=== PATIENT | female | born 1960 ===

== ENCOUNTER 2016-10-15 12:52 | Emergency (ER) | payer MEDICARE, MEDICAID ==
[2016-10-15 12:56] VITALS: BMI 29.2
[2016-10-15 12:59] VITALS: BP 111/83; PULSE 85; RESP 18; TEMP 98.5; O2SAT 96
--- NOTE | 2016-10-15 13:03 | ED PDOC ---
Arrival/HPI - General Historian: Patient - General Chief Complaint: Bite Time Seen by Provider: 10/15/16 12:57 - History of Present Illness Narrative History of Present Illness (Text): 10/15/16 12:59 56 y/o female, pmh including pneumonia, nkda, c/o tick bite on the lt. upper arm x 2 days. PT. stated that [place] the [place], bitten by the tick which was painful, removed it by herself, no numbness or tingling, no fever or chills , no headache or night sweat, no dizziness, no other medical or psychological complaints. (Daniel Aldridge) Past Medical History - Provider Review Nursing Documentation Reviewed: Yes - Infectious Disease Hx of Infectious Diseases: None - Tetanus Immunization Tetanus Immunization: Unknown - Cardiac Hx Pacemaker: No - Pulmonary Hx Respiratory Disorders: Yes Hx Asthma: Yes Hx Pneumonia: Yes - Neurological Hx Paralysis: No - HEENT Hx HEENT Disorder: No - Renal Hx Renal Disorder: No - Endocrine/Metabolic Hx Endocrine Disorders: No - Hematological/Oncological Hx Blood Transfusions: No Hx Blood Transfusion Reaction: No - Integumentary Hx Dermatological Disorder: No - Musculoskeletal/Rheumatological Hx Musculoskeletal Disorders: Yes - Gastrointestinal Hx Gastrointestinal Disorders: No - Genitourinary/Gynecological Hx Genitourinary Disorders: No - Psychiatric Hx Psychophysiologic Disorder: No Hx Substance Use: No - Surgical History Hx Orthopedic Surgery: Yes (RIGHT ANKLE) Other/Comment: OVARIAN CYST; fibroids removed - Anesthesia Hx Anesthesia: Yes Hx Anesthesia Reactions: No Hx Malignant Hyperthermia: No - Suicidal Assessment Feels Threatened In Home Enviroment: No Family/Social History - Physician Review Nursing Documentation Reviewed: Yes Family/Social History: Unknown Family HX Smoking Status: Light Smoker < 10 Cigarettes Daily Hx Alcohol Use: No Hx Substance Use: No Hx Substance Use Treatment: No Allergies/Home Meds Allergies/Adverse Reactions: Allergies No Known Allergies Allergy (Verified 07/06/15 19:52) Home Medications: Home Meds Medication Instructions Recorded Confirmed Ciprofloxacin HCl [Cetraxal] 2 drop OT BID 08/23/16 08/23/16 Review of Systems - Review of Systems Constitutional: absent: Fatigue, Fevers Eyes: absent: Vision Changes ENT: absent: Hearing Changes Respiratory: absent: Cough Cardiovascular: absent: Chest Pain Gastrointestinal: absent: Abdominal Pain, Nausea, Vomiting Skin: Rash. absent: Pruritis, Skin Lesions, Laceration, Abscess, Ulcer, Cellulitis Neurological: absent: Headache, Dizziness, Focal Weakness, Gait Changes Physical Exam Vital Signs Reviewed: Yes Temperature: Afebrile Blood Pressure: Normal Pulse: Regular Respiratory Rate: Normal Appearance: Positive for: Well-Appearing, Non-Toxic, Comfortable Pain Distress: Mild Mental Status: Positive for: Alert and Oriented X 3 - Systems Exam Head: Present: Atraumatic, Normocephalic Pupils: Present: PERRL Extroacular Muscles: Present: EOMI Conjunctiva: Present: Normal Mouth: Present: Moist Mucous Membranes Neck: Present: Normal Range of Motion Respiratory/Chest: Present: Clear to Auscultation, Good Air Exchange. No: Respiratory Distress, Accessory Muscle Use Cardiovascular: Present: Regular Rate and Rhythm, Normal S1, S2. No: Murmurs Abdomen: Present: Normal Bowel Sounds. No: Tenderness, Distention, Peritoneal Signs Back: Present: Normal Inspection Upper Extremity: Present: Normal Inspection. No: Cyanosis, Edema Lower Extremity: Present: Normal Inspection. No: Edema Neurological: Present: GCS=15, Speech Normal, Motor Func Grossly Intact, Gait Normal, Memory Normal Skin: Present: Warm, Dry, Rashes (Lt. arm: visible insect bite wound with redness approx. 1cm diameter, no bullseye or target signs, FROM without limitation, sensation intact, motor 5/5, +radial pulse, capillary refill< 2 seconds, neurovascular intact, no visible remaining body parts on the wound. ), Normal Color Psychiatric: Present: Alert, Oriented x 3, Normal Insight, Normal Concentration Medical Decision Making ED Course and Treatment: 10/15/16 13:05 -lymes Igg and Igm ordered. -I discussed with the patient about prophylatic treatment for doxycycline and she will need follow up with his own pmd for repeat test as needed, pt. agreed. -Discharge home with zyrtec, doxycycline, stay hydrated, bed rest, take tylenol for pain as needed, follow up with your own pmd within 2 days, return to the ER for any new or worsening signs or symptoms. Please note that if you have lymes disease which you will need additional 20 days of antibiotic. (Daniel Aldridge) I was available for consultation during PA evaluation. The chart was reviewed by me, and I agree with disposition. The documented history was done by the physician data analytics architect. The documented physical exam was done by the physician data analytics architect. The documented procedures were done by the physician data analytics architect. (Juan Jean) - PA / HEALTH INFORMATION TECHNOLOGIST / Resident Statement MD/DO has reviewed & agrees with the documentation as recorded. Disposition/Present on Arrival - Present on Arrival Any Indicators Present on Arrival: No History of DVT/PE: No History of Uncontrolled Diabetes: No Urinary Catheter: No History of Decub. Ulcer: No History Surgical Site Infection Following: None - Disposition Have Diagnosis and Disposition been Completed?: Yes Disposition Time: 13:08 Patient Plan: Discharge - Disposition Diagnosis: Tick bite Disposition: HOME/ ROUTINE Condition: GOOD Additional Instructions: Discharge home with zyrtec, doxycycline, stay hydrated, bed rest, take tylenol for pain as needed, follow up with your own pmd within 2 days, return to the ER for any new or worsening signs or symptoms. Please note that if you have lymes disease which you will need additional 20 days of antibiotic. Prescriptions: Cetirizine HCl [Zyrtec Allergy] 10 mg PO DAILY PRN #10 sgl PRN Reason: Other Doxycycline Hyclate 100 mg PO BID #20 cap Ref[place]: [facility] [place] [facility] [place] - Follow up with primary Carroll Granger MD [Staff Provider] - Follow up with primary Forms: WORK NOTE
[2016-10-17 16:40] LABS: LYME IGG NEGATIVE (NEGATIVE)
[2016-10-17 16:54] LABS: LYME IGM NEGATIVE (NEGATIVE)
== END 2016-10-15 13:34 | disposition home or self-care (01) ==
LOC: ED 12:52
DX: S40.862A Insect bite (nonvenomous) of left upper arm, initial encounter (principal); W57.XXXA Bitten or stung by nonvenomous insect and other nonvenomous arthropods, initial encounter

== ENCOUNTER 2016-10-23 07:57 | Day surgery (SDC) | payer MEDICARE, MEDICAID ==
[2016-10-23] MEDS ORDERED: Bupivacaine 0.5% Inj(30mL) ONE ×2 (08:09→12:06)
[2016-10-23 08:27] LABS: ADD MANUAL DIFF? NO
[2016-10-23 08:33] LABS: BASO # 0.08 [, K/mm3] (0.0-2.0); BASO % 1.4 % (0.0-3.0); EOS # 0.3 (0.0-0.7); EOS % 4.6 % (1.5-5.0); GRAN # 2.73 (1.4-6.5); GRAN % 46.5 % (50.0-68.0); HEMATOCRIT 42.1 % (36.0-48.0); LYMPH # 2.3 (1.2-3.4); LYMPH % 39.8 % (22.0-35.0); MEAN CELL VOLUME 82.9 fL (80.0-105.0); MEAN CORPUSCULAR HGB CONC 32.5 g/dl (31.0-37.0); MEAN PLATELET VOLUME 11.8 fl (7.0-11.0); MONO # 0.5 (0.1-0.6); MONO % 7.7 % (1.0-6.0); PLATELET COUNT 194 [, 10^3/uL] (120.0-450.0); RED CELL DISTRIBUTION WIDTH 14.4 % (11.5-14.5); WHITE BLOOD COUNT 5.9 [, 10^3/ul] (4.5-11.0)
[2016-10-23 08:40] LABS: INR 0.94 (0.93-1.08); PARTIAL THROMBOPLASTIN TIME 28.5 Seconds (23.7-30.8)
[2016-10-23 08:42] LABS: BLOOD UREA NITROGEN 17 mg/dL (7-21); CALCIUM 9.3 mg/dL (8.4-10.5); CARBON DIOXIDE 28 mmol/L (21-33); CHLORIDE 104 mmol/L (95-110); CHOLESTEROL 196 mg/dL (130-200); GFR AFRICAN-AMERICAN > 60; GLUCOSE,RANDOM 89 mg/dL (70-110); POTASSIUM 4.1 mmol/L (3.6-5.0); SODIUM 140 mmol/L (132-148)
[2016-10-23] MEDS ORDERED: Ketamine 10 mg/ml Inj (20 ml) ONE (12:11)
[2016-10-23] MEDS ORDERED: Midazolam 2 MG/2 ML VIAL ONE (12:13)
--- NOTE | 2016-10-23 12:59 | PCM.SURG1 ---
Surgeon's Initial Post Op Note - Surgeon's Notes Surgeon: Dr. Calderon Nursing Program Chair: Dr. Saavedra PGY1 Type of Anesthesia: IV Sedation Pre-Operative Diagnosis: R arm lipoma Operative Findings: see dictation Post-Operative Diagnosis: same Operation Performed: excision of lipoma Specimen/Specimens Removed: right arm lipoma Estimated Blood Loss: EBL {In ML}: 5 Post-Op Condition: Good Date of Surgery/Procedure: 10/23/16 Time of Surgery/Procedure: 12:15
[2016-10-23] MEDS ORDERED: Lactated Ringer's 1,000 ML IV SCH (13:11)
[2016-10-23 13:27] VITALS: TEMP 98.3
[2016-10-23 15:27] VITALS: PULSE 67; RESP 16; O2SAT 94
[2016-10-23 17:11] VITALS: BP 112/75
--- NOTE | 2016-10-24 22:13 | OP ---
PROCEDURE DATE: 10/23/2016 ROOM: [facility]. SURGEON: Niranjan Calderon M.D. WOOD FINISHER APPRENTICE: Paula Luna DO, PGY-1. ANESTHESIOLOGIST: Dr. Rahman. ANESTHESIA: MAC -- Marcaine 0.5-21 mL. PREOPERATIVE DIAGNOSIS: Right arm lipoma, 9 cm. POSTOPERATIVE DIAGNOSIS: Right arm lipoma, 9 cm. PROCEDURE: 1. 10/23/16: Excision of a right arm lipoma, 9 cm. 2. Intermediate 9-cm layered closure. OPERATIVE INDICATION: The patient is a 56-year-old female with an enlarging subcutaneous le mabel in the outer aspect of her right upper arm. It has become somewhat discomforting and is tender when her clothing rubs against it, and she has been referred by her private physician, Dr. Jen rocha, for excision of same. Risks, benefits, and their alternatives with their anticipated outcomes were discussed with the patient and she signs the informed consent. She will not do the procedure w ithout having anesthesia standing by, however, as she is afraid of needles and pain. OPERATIVE NOTE: The patient is brought to the operating room from the same day holding area. She is identified by her wrist band, undergoes timeout procedure, and is placed on the table in a mild left lateral Nina' position. The anesthesiologist sedates the patient and monitors her vital signs with oxygenation, etc. The rig ht arm is prepped with Hibiclens, chlorhexidine preparation, and the patient is aseptically draped. The previous site has been marked and is infiltrated carefully by the operating surgeon, and once a g ood skin wheal is evident, incision is made and sharp dissection carried on through to the subcutaneo us fat. Additional infiltration is employed alongside the subcutaneous tumor and once good anesthetic take is obtained, the subcutaneous tissue was with cautery, scalpel, and the large lipoma removed. There are significant adhesions throughout with multiple loculations and appendage-like attachments to the lipoma and these are bluntly and carefully removed and hemostasis is contained with electroco agulating cautery. The specimen is submitted to pathology in formalin and the wound is now lavaged with normal saline so lution, aspirated, and hemostasis contained. No additional tumors are seen, and the wound is closed in an intermediate closure with 3-0 Polysorb. Subcutaneous approximation and the skin closed with th e Auto Suture skin stapler. A dry dressing is applied over same. The patient is awakened and transp orted to the recovery room in a satisfactory condition. Sponge, instrument, and suture count were ve rified as correct at the end of the procedure. Estimated blood loss during this procedure was less t traylor 5 mL of blood. This dictation will be electronically signed without being read. The surgical coordinator was present throughout the entire procedure and was exceptionally helpful in a ssisting in the dissection and in removal of the tumor. Niranjan Calderon MD cc: [phone] TT: 10/24/2016 22:13:17 mt
== END 2016-10-23 14:05 | disposition home or self-care (01) ==
LOC: SDS 07:57
PROVIDERS: ATTEND Surgery
DX: D17.21 Benign lipomatous neoplasm of skin and subcutaneous tissue of right arm (principal); J45.909 Unspecified asthma, uncomplicated; I10 Essential (primary) hypertension; M19.90 Unspecified osteoarthritis, unspecified site; J44.9 Chronic obstructive pulmonary disease, unspecified
CPT/HCPCS: 11402; 36415; 80048; 80061; 85025; 85610; 85730; 88304; J1100; J2250; J2405; J2765; J7120

== ENCOUNTER 2017-08-02 12:17 | Emergency (ER) | payer MEDICARE, MEDICAID ==
[2017-08-02 12:17] VITALS: BMI 29.2
--- NOTE | 2017-08-02 12:34 | ED PDOC ---
Arrival/HPI - General Chief Complaint: GI Problem Time Seen by Provider: 08/02/17 12:33 Historian: Patient - History of Present Illness Narrative History of Present Illness (Text): 08/02/17 13:16 pt p/w + < 1 day onset of copious diarrhea, non-bloody, yellow/green/watery stool; ~ 5-6 episodes; + freq nausea with 1 episode of vomiting, non-bloody/non- bilious; pt states she ate a store brought chicken diner yesterday and others in her family had the same food without any problems; pt states + chills, no fever/sweats, no cp/sob/palpitations, + lower abd cramps that is intermittent, pain is rated at 4/10, non-radiating; no urinary changes, + feeling thirsty; no loc, no lightheadedness, + felt weak, no rashes, no other complaints; pt denied fall/trauma/sick contact, no travel; pt is here for further eval. Time/Duration: 24 hours Symptom Onset: Sudden Symptom Course: Unchanged Quality: Cramping Severity Level: 4 Activities at Onset: Rest Context: Home Past Medical History - Provider Review Nursing Documentation Reviewed: Yes - Travel History Have you recently traveled outside [place] w/in the past 3 mons?: No - Past History Past History: No Previous - Infectious Disease Hx of Infectious Diseases: None - Tetanus Immunization Tetanus Immunization: Unknown - Cardiac Hx Pacemaker: No - Pulmonary Hx Respiratory Disorders: Yes Hx Asthma: Yes Hx Pneumonia: Yes - Neurological Hx Paralysis: No - HEENT Hx HEENT Disorder: No - Renal Hx Renal Disorder: No - Endocrine/Metabolic Hx Endocrine Disorders: No - Hematological/Oncological Hx Blood Transfusions: No Hx Blood Transfusion Reaction: No - Integumentary Hx Dermatological Disorder: No - Musculoskeletal/Rheumatological Hx Musculoskeletal Disorders: Yes - Gastrointestinal Hx Gastrointestinal Disorders: No - Genitourinary/Gynecological Hx Genitourinary Disorders: No - Psychiatric Hx Emotional Abuse: No Hx Physical Abuse: No Hx Substance Use: No - Surgical History Hx Orthopedic Surgery: Yes (RIGHT ANKLE) Other/Comment: OVARIAN CYST; fibroids removed - Anesthesia Hx Anesthesia Reactions: No Hx Malignant Hyperthermia: No - Suicidal Assessment Feels Threatened In Home Enviroment: No Family/Social History - Physician Review Nursing Documentation Reviewed: Yes Family/Social History: No Known Family HX Smoking Status: Light Smoker < 10 Cigarettes Daily (5-8 cigs per day) Hx Alcohol Use: No Hx Substance Use: No Hx Substance Use Treatment: No Allergies/Home Meds Allergies/Adverse Reactions: Allergies No Known Allergies Allergy (Verified 08/02/17 12:53) Review of Systems - Review of Systems Constitutional: Fatigue Eyes: Normal ENT: Normal Respiratory: Normal Cardiovascular: Normal Gastrointestinal: Abdominal Pain, Diarrhea, Nausea, Vomiting, Appetite Changes Genitourinary Female: Normal Musculoskeletal: Normal Skin: Normal Neurological: Dizziness Endocrine: Normal Hemo/Lymphatic: Normal Psychiatric: Normal Physical Exam Vital Signs Reviewed: Yes Vital Signs Temp Pulse Resp BP Pulse Ox 08/02/17 15:57 86 8 L 101/75 97 08/02/17 12:50 98.4 F 92 H 17 99/71 L 98 Temperature: Afebrile Blood Pressure: Hypertensive (mild hypotension) Pulse: Regular Respiratory Rate: Normal Appearance: Positive for: Well-Appearing, Other (uncomfortable, cooperative, alert/awake, GCS = 15, oriented x 3, NAD, follows commands with ease) Pain Distress: None Mental Status: Positive for: Alert and Oriented X 3 - Systems Exam Head: Present: Atraumatic, Normocephalic Pupils: Present: PERRL, Other (visual field intact b/l, no nystagmus, no photophobia, sclera anicteric) Extroacular Muscles: Present: EOMI Conjunctiva: Present: Normal Ears: Present: Normal Mouth: Present: Dry, Normal Teeth, Other (uvula/tongue are midline, no exudate/ lesions, intact dentitions, no drooling/stridor, no dypshonia) Pharnyx: Present: Normal Nose (External): Present: Atraumatic Nose (Internal): Present: Normal Inspection Neck: Present: Normal Range of Motion, Trachea Midline, Other (intact ROM, no step off). No: MIDLINE TENDERNESS, Lymphadenopathy Respiratory/Chest: Present: Clear to Auscultation, Good Air Exchange. No: Accessory Muscle Use Cardiovascular: Present: Regular Rate and Rhythm, Normal S1, S2 Abdomen: Present: Other (well nourished female, no thorpe's sign, no mcburney's point tenderness, no masses/rebound/guarding/rigidity; no focal tenderness) Back: Present: Normal Inspection. No: CVA Tenderness Upper Extremity: Present: Normal Inspection, Normal ROM, NORMAL PULSES, Neurovascularly Intact. No: Edema Lower Extremity: Present: Normal Inspection, NORMAL PULSES, Normal ROM, Neurovascularly Intact, Other (+ ambulatory, neurovasc intact b/l, strength 5/5 grossly intact in all limbs) Neurological: Present: GCS=15, CN II-XII Intact, Speech Normal Skin: Present: Warm, Normal Color, Other (cap refill ~ 1sec, no ulcerations, no petechiae, no rashes, no gross pallor) Psychiatric: Present: Alert, Oriented x 3 Medical Decision Making ED Course and Treatment: 08/02/17 13:23 Impression: N/V/D, ? food related, unlikely obstruction process, non-surg abd currently, will continue to monitor i have consider all the differential diagnosis regarding pt's chief medical complaints/clinical findings, including but are not limited to: r/o food related illness, unlikely obstructions, unlikely diverticulitis A/P: N/V/D - labs - observe - ua - supportive care 08/02/17 1730 pt is feeling improved, but unable to provide urine sample 1800 pt provided UA, awaiting results 1840 pt is made aware of her medical results pt is encouraged bland diet pt is encouraged fluid hydration pt will f/u as directed pt will be discharged home Re-evaluation Time: 18:47 Reassessment Condition: Improved - Lab Interpretations Lab Results: 08/02/17 14:44 08/02/17 14:44 Lab Results 08/02/17 17:55: Urine Color Yellow, Urine Appearance Clear, Urine pH 5.5, Ur Specific [place] >= 1.030, Urine Protein Negative, Urine Glucose (UA) Negative, Urine Ketones Negative, Urine Blood Negative, Urine Nitrate Negative, Urine Bilirubin Negative, Urine Urobilinogen 0.2, Ur Leukocyte Esterase Negative 08/02/17 14:44: Sodium 144, Potassium 4.5, Chloride 107, Carbon Dioxide 25, Anion Gap 16, BUN 16, Creatinine 0.7, Est GFR ( Amer) > 60, Est GFR (Non- Af Amer) > 60, Random Glucose 116 H, Calcium 9.6, Total Bilirubin 0.5, AST 25, ALT 28, Alkaline Phosphatase 80, Total Protein 7.5, Albumin 4.1, Globulin 3.4, Albumin/Globulin Ratio 1.2, Lipase 53 02/16/18 14:44: WBC 11.8 H D, RBC 5.25, Hgb 14.3, Hct 44.1, MCV 84.0, MCH 27.2, MCHC 32.4, RDW 14.3, Plt Count 183, MPV 11.5 H, Gran % 89.7 H, Lymph % (Auto) 6.2 L, [place]iken % (Auto) 3.4, Eos % (Auto) 0.7 L, Baso % (Auto) 0.0, Gran # 10.57 H , Lymph # (Auto) 0.7 L, Aiken # (Auto) 0.4, Eos # (Auto) 0.1, Baso # (Auto) 0.00 I have reviewed the lab results: Yes Interpretation: All labs normal - Medication Orders Current Medication Orders: Discontinued Medications Famotidine (Pepcid) 20 mg IVP STAT STA Stop: 08/02/17 13:16 Last Admin: 08/02/17 14:44 Dose: 20 mg IVP Administration Document 08/02/17 14:44 HI (Rec: 08/02/17 14:44 [place] [id number]) Charges for Administration # of IVP Administrations 1 Sodium Chloride (Sodium Chloride 0.9%) 1,000 mls @ 1,000 mls/hr IV .Q1H STA Stop: 08/02/17 14:14 Last Admin: 08/02/17 14:43 Dose: 1,000 mls/hr eMAR Start Stop Document 08/02/17 14:43 HI (Rec: 08/02/17 14:44 [place] [id number]) Intravenous Solution Start Date 08/02/17 Start Time 14:43 Ondansetron HCl (Zofran Inj) 4 mg IVP STAT STA Stop: 08/02/17 13:16 Last Admin: 08/02/17 14:44 Dose: 4 mg IVP Administration Document 08/02/17 14:44 IN (Rec: 08/02/17 14:44 [place] [id number]) Charges for Administration # of IVP Administrations 1 Disposition/Present on Arrival - Present on Arrival Any Indicators Present on Arrival: No History of DVT/PE: No History of Uncontrolled Diabetes: No Urinary Catheter: No History Surgical Site Infection Following: None - Disposition Have Diagnosis and Disposition been Completed?: Yes Diagnosis: Vomiting, Diarrhea, Dehydration Disposition: HOME/ ROUTINE Disposition Time: 18:44 Patient Plan: Discharge Patient Problems: Current Active Problems Problem Status Onset Dehydration Acute Diarrhea Acute Vomiting Acute Condition: STABLE Discharge Instructions (ExitCare): Dehydration, Adult (DC), Nausea and Vomiting , Adult (DC), Diarrhea in Adolescents and Adults Print Language: CROATIAN Additional Instructions: Make sure to see your doctor in 1-2 days DRINK PLENTY OF FLUIDS BLAND DIET is encouraged take your medications as prescribed RETURN TO ED IF worse pain, cant breath, persistent vomiting, high fever >101- 102 for hours, altered behavior, unable to urinate, heavy/persistent bleeding, passing out, chest pain, or other medical emergencies Prescriptions: Ondansetron ODT [Zofran ODT] 4 mg PO TID PRN #10 odt PRN Reason: Nausea/Vomiting Referrals: Jen Ivory DO [Primary Care Provider] - Follow up with primary Forms: [employer] (Ukrainian)
[2017-08-02 12:54] VITALS: TEMP 98.4
[2017-08-02] MEDS ORDERED: Sodium Chloride 0.9% 1,000 ML IV STA (13:15)
[2017-08-02 14:56] LABS: EOS # 0.1 (0.0-0.7); EOS % 0.7 % (1.5-5.0); GRAN # 10.57 (1.4-6.5); GRAN % 89.7 % (50.0-68.0); HEMOGLOBIN 14.3 g/dL (12.0-16.0); LYMPH # 0.7 (1.2-3.4); LYMPH % 6.2 % (22.0-35.0); MEAN CORPUSCULAR HEMOGLOBIN 27.2 pg (25.0-35.0); MEAN CORPUSCULAR HGB CONC 32.4 g/dl (31.0-37.0); MEAN PLATELET VOLUME 11.5 fl (7.0-11.0); MONO # 0.4 (0.1-0.6); MONO % 3.4 % (1.0-6.0); RBC 5.25 10^6/uL (3.5-6.1); RED CELL DISTRIBUTION WIDTH 14.3 % (11.5-14.5); WHITE BLOOD COUNT 11.8 10^3/ul (4.5-11.0)
[2017-08-02 15:06] LABS: ALB/GLOB RATIO 1.2 (1.1-1.8); ALBUMIN 4.1 g/dL (3.0-4.8); ALT/SGPT 28 U/L (7-56); AST/SGOT 25 U/L (14-36); BLOOD UREA NITROGEN 16 mg/dL (7-21); CALCIUM 9.6 mg/dL (8.4-10.5); GFR AFRICAN-AMERICAN > 60; GFR NON-AFRICAN AMERICAN > 60; LIPASE 53 U/L (23-300)
[2017-08-02 15:58] VITALS: BP 101/75; PULSE 86; RESP 8; O2SAT 97
[2017-08-02 18:25] LABS: PH,URINE 5.5 (4.7-8.0); URINE BILIRUBIN NEGATIVE (NEGATIVE); URINE BLOOD NEGATIVE (NEGATIVE); URINE GLUCOSE (UA) NEGATIVE (NEGATIVE); URINE LEUKOCYTE ESTERASE NEGATIVE Leu/uL (NEGATIVE); URINE NITRATE NEGATIVE (NEGATIVE); URINE PROTEIN NEGATIVE mg/dL (<30 mg/dL); URINE UROBILINOGEN 0.2 E.U./dL (<1 E.U./dL)
[2017-08-02 18:30] LABS: URINE APPEARANCE CLEAR (CLEAR); URINE COLOR YELLOW (YELLOW)
== END 2017-08-02 18:45 | disposition home or self-care (01) ==
LOC: ED 12:17
DX: R19.7 Diarrhea, unspecified (principal); E86.0 Dehydration; R11.10 Vomiting, unspecified
CPT/HCPCS: 80053; 81003; 83690; 85025; 96374; 96375; 99284; J2405; J7040

== ENCOUNTER 2017-09-15 12:46 | Emergency (ER) | payer MEDICARE, MEDICAID ==
[2017-09-15 12:46] VITALS: BMI 29.2
[2017-09-15] MEDS ORDERED: Ipratropium 0.02% Inhal Soln (0.5 mg/2.5 ml) UD IH STA (12:57)
[2017-09-15 13:01] VITALS: TEMP 98.8
--- NOTE | 2017-09-15 13:52 | ED PDOC ---
Arrival/HPI - General Chief Complaint: Shortness Of Breath Time Seen by Provider: 09/15/17 12:54 Historian: Patient - History of Present Illness Narrative History of Present Illness (Text): 09/15/17 12:46 57 year old undomicile female, with past medical history of seasonal allergies, mildly intermittent asthma and social history of cigarette smoking, presents to the Emergency department complaining of shortness of breath, dyspnea on exertion , dry cough at times with productive yellow mucus, chest tightness and pleuritic chest pain for 6 days. Patient denies any dizziness, peripheral edema , widening abdominal guarding, hemoptysis, fever, chills, nausea, vomiting, diarrhea or any other complaints. PMD: Dr. Ivory Time/Duration: < week Symptom Onset: Gradual Symptom Course: Unchanged Quality: Tightness Activities at Onset: Light Context: Home Past Medical History - Provider Review Nursing Documentation Reviewed: Yes - Past History Past History: No Previous - Infectious Disease Hx of Infectious Diseases: None - Tetanus Immunization Tetanus Immunization: Unknown - Cardiac Hx Pacemaker: No - Pulmonary Hx Respiratory Disorders: Yes Hx Asthma: Yes Hx Pneumonia: Yes - Neurological Hx Paralysis: No - HEENT Hx HEENT Disorder: No - Renal Hx Renal Disorder: No - Endocrine/Metabolic Hx Endocrine Disorders: No - Hematological/Oncological Hx Blood Transfusions: No Hx Blood Transfusion Reaction: No - Integumentary Hx Dermatological Disorder: No - Musculoskeletal/Rheumatological Hx Musculoskeletal Disorders: Yes - Gastrointestinal Hx Gastrointestinal Disorders: No - Genitourinary/Gynecological Hx Genitourinary Disorders: No - Psychiatric Hx Emotional Abuse: No Hx Physical Abuse: No Hx Substance Use: No - Surgical History Hx Orthopedic Surgery: Yes (RIGHT ANKLE) Other/Comment: OVARIAN CYST; fibroids removed - Anesthesia Hx Anesthesia: Yes Hx Anesthesia Reactions: No Hx Malignant Hyperthermia: No - Suicidal Assessment Feels Threatened In Home Enviroment: No Family/Social History - Physician Review Nursing Documentation Reviewed: Yes Family/Social History: No Known Family HX Smoking Status: Light Smoker < 10 Cigarettes Daily Hx Alcohol Use: No Hx Substance Use: No Hx Substance Use Treatment: No Allergies/Home Meds Allergies/Adverse Reactions: Allergies No Known Allergies Allergy (Verified 09/15/17 12:52) Home Medications: Home Meds Medication Instructions Recorded Confirmed Temazepam [Temazepam] 100 mg PO HS 09/15/17 09/15/17 Review of Systems - Physician Review All systems were reviewed & negative as marked: Yes - Review of Systems Constitutional: Normal. absent: Fevers Eyes: Normal ENT: Normal Respiratory: SOB, Cough Cardiovascular: Chest Pain (chest tightness), ASHRAF. absent: Edema, Orthopnea Gastrointestinal: Normal. absent: Abdominal Pain, Diarrhea, Nausea, Vomiting Genitourinary Female: Normal Musculoskeletal: Normal Skin: Normal Neurological: Normal. absent: Dizziness Endocrine: Normal Hemo/Lymphatic: Normal Psychiatric: Normal Physical Exam Vital Signs Reviewed: Yes Vital Signs Temp Pulse Resp BP Pulse Ox 09/15/17 14:31 79 18 121/79 99 09/15/17 13:14 18 98 09/15/17 12:47 98.8 F 85 19 123/85 96 Temperature: Afebrile Blood Pressure: Normal Pulse: Regular Respiratory Rate: Normal Appearance: Positive for: Well-Appearing, Non-Toxic, Comfortable Pain Distress: None Mental Status: Positive for: Alert and Oriented X 3 - Systems Exam Head: Present: Atraumatic, Normocephalic Pupils: Present: PERRL Extroacular Muscles: Present: EOMI Conjunctiva: Present: Normal Mouth: Present: Moist Mucous Membranes Pharnyx: Present: ERYTHEMA Neck: Present: Normal Range of Motion Respiratory/Chest: Present: Clear to Auscultation. No: Good Air Exchange ( decreased I/E ratio), Respiratory Distress, Accessory Muscle Use Cardiovascular: Present: Regular Rate and Rhythm, Normal S1, S2. No: Murmurs Abdomen: Present: Normal Bowel Sounds. No: Tenderness, Distention, Peritoneal Signs Back: Present: Normal Inspection Upper Extremity: Present: Normal Inspection. No: Cyanosis, Edema Lower Extremity: Present: Normal Inspection. No: Edema Neurological: Present: GCS=15, CN II-XII Intact, Speech Normal Skin: Present: Warm, Dry, Normal Color. No: Rashes Psychiatric: Present: Alert, Oriented x 3, Normal Insight, Normal Concentration Medical Decision Making ED Course and Treatment: 09/15/17 12:56 Impression: 57 year old female presents to the Emergency department for shortness of breath, cough, and chest tightness. Differential Diagnosis included but are not limited to: URI superimposed asthma and/or COPD exacerbation Plan: -- Labs -- EKG -- Chest X-ray -- nebulizer/solumedrol -- atrovent -- Reassess and disposition Progress Notes: 09/15/17 12:56 EKG: Ordered, reviewed, and independently interpreted the EKG. Rate : 71 BPM Rhythm : NSR Interpretation : Poor R wave progression precordially, no ischemic st/t segments. 09/15/17 17:01 Ambulating in ED without hypoxia/tachycardia or tachypnea. Feels better. - Lab Interpretations Lab Results: 09/15/17 13:30 09/15/17 13:30 Lab Results 09/15/17 14:00: Urine Color Yellow, Urine Appearance Clear, Urine pH 7.0, Ur Specific [place] 1.015, Urine Protein Negative, Urine Glucose (UA) Negative, Urine Ketones Negative, Urine Blood Negative, Urine Nitrate Negative, Urine Bilirubin Negative, Urine Urobilinogen 0.2, Ur Leukocyte Esterase Negative 09/15/17 13:30: Sodium 141, Potassium 3.8, Chloride 105, Carbon Dioxide 27, Anion Gap 12, BUN 15, Creatinine 0.7, Est GFR ( Amer) > 60, Est GFR (Non- Af Amer) > 60, Random Glucose 114 H, Calcium 9.5, Magnesium 2.1, Total Bilirubin 0.2, AST 38 H D, ALT 42, Alkaline Phosphatase 108, Lactate Dehydrogenase 487, Total Creatine Kinase 66, Troponin I < 0.01, NT-Pro-B Natriuret Pep 59.3, Total Protein 7.2, Albumin 3.8, Globulin 3.4, Albumin/ Globulin Ratio 1.1 09/15/17 13:30: PT 11.4, INR 0.99, APTT 32.4 09/15/17 13:30: WBC 6.4 D, RBC 4.70, Hgb 12.7, Hct 38.6, MCV 82.1, MCH 27.0, MCHC 32.9, RDW 14.6 H, Plt Count 195, MPV 11.0, Gran % 55.7, Lymph % (Auto) 27.5 , [place] % (Auto) 12.9 H, Eos % (Auto) 3.0, Baso % (Auto) 0.9, Gran # 3.57, Lymph # (Auto) 1.8, [place] # (Auto) 0.8 H, Eos # (Auto) 0.2, Baso # (Auto) 0.06 - RAD Interpretation Narrative RAD Interpretations (Text): 09/15/17 14:55 Chest X-ray reviewed by radiologist, shows no active disease. No significant interval change compared to the prior examination(s). Radiology Orders: 09/15/17 12:56 CHEST PORTABLE [RAD] Stat Design Engineering Manager: Radiologist - Medication Orders Current Medication Orders: Discontinued Medications Ipratropium [place] (Atrovent) 0.5 mg IH STAT STA Stop: 09/15/17 12:58 Last Admin: 09/15/17 13:30 Dose: 0.5 mg Methylprednisolone (Solu-Medrol) 125 mg IVP STAT STA Stop: 09/15/17 13:16 Methylprednisolone (Solu-Medrol) 125 mg IVP STAT STA Stop: 09/15/17 13:29 Last Admin: 09/15/17 13:30 Dose: 125 mg IVP Administration Document 09/15/17 13:30 EQ (Rec: 09/15/17 13:30 EQ [id number]) Charges for Administration # of IVP Administrations 1 - Scribe Statement The provider has reviewed the documentation as recorded by the Scribe Slime Juárez,. All medical record entries made by the Scribe were at my direction and personally dictated by me. I have reviewed the chart and agree that the record accurately reflects my personal performance of the history, physical exam, medical decision making, and the department course for this patient. I have also personally directed, reviewed, and agree with the discharge instructions and disposition. Disposition/Present on Arrival - Present on Arrival Any Indicators Present on Arrival: No History of DVT/PE: No History of Uncontrolled Diabetes: No Urinary Catheter: No History of Decub. Ulcer: No History Surgical Site Infection Following: None - Disposition Have Diagnosis and Disposition been Completed?: Yes Diagnosis: URI (upper respiratory infection), COPD with acute exacerbation Disposition: HOME/ ROUTINE Disposition Time: 17:07 Patient Plan: Discharge Condition: FAIR Discharge Instructions (ExitCare): Viral Upper Respiratory Infection, Adult (DC ), Exacerbation of COPD Print Language: ETHIOPIAN Additional Instructions: Please stop cigarette smoking Avoid milk and cheese while with phlegmy congestion and mucoid expectoration. take the bronchodilator rx as needed, and antibiotics and prednisone course. Prescriptions: Azithromycin [Z-[place]] 250 mg PO DAILY #6 tab Ipratropium [Atrovent HFA] 2 puff IH Q6 PRN 5 Days #1 puff PRN Reason: Shortness Of Breath predniSONE [Prednisone] 40 mg PO DAILY #8 tab Forms: [employer] (Togolese)
[2017-09-15 13:53] VITALS: RESP 18
[2017-09-15 13:56] LABS: BASO # 0.06 K/mm3 (0.0-2.0); BASO % 0.9 % (0.0-3.0); EOS # 0.2 (0.0-0.7); GRAN # 3.57 (1.4-6.5); GRAN % 55.7 % (50.0-68.0); HEMOGLOBIN 12.7 g/dL (12.0-16.0); LYMPH # 1.8 (1.2-3.4); LYMPH % 27.5 % (22.0-35.0); MEAN CELL VOLUME 82.1 fl (80.0-105.0); MEAN CORPUSCULAR HGB CONC 32.9 g/dl (31.0-37.0); MONO # 0.8 (0.1-0.6); MONO % 12.9 % (1.0-6.0); RBC 4.7 10^6/uL (3.5-6.1); RED CELL DISTRIBUTION WIDTH 14.6 % (11.5-14.5); WHITE BLOOD COUNT 6.4 10^3/ul (4.5-11.0)
[2017-09-15 14:04] LABS: ALB/GLOB RATIO 1.1 (1.1-1.8); ALBUMIN 3.8 g/dL (3.0-4.8); ALT/SGPT 42 U/L (7-56); AST/SGOT 38 U/L (14-36); BLOOD UREA NITROGEN 15 mg/dL (7-21); CALCIUM 9.5 mg/dL (8.4-10.5); GFR AFRICAN-AMERICAN > 60; GFR NON-AFRICAN AMERICAN > 60
[2017-09-15 14:15] LABS: B-TYPE NATRIURETIC PEPTIDE 59.3 pg/mL (0-450); TROPONIN I < 0.01 ng/mL
[2017-09-15 14:25] LABS: INR 0.99 (0.93-1.08); PARTIAL THROMBOPLASTIN TIME 32.4 Seconds (25.1-36.5); PROTHROMBIN TIME 11.4 SECONDS (9.4-12.5)
[2017-09-15 14:31] VITALS: O2SAT 99
--- NOTE | 2017-09-15 14:35 | RAD ---
HISTORY: shortness of breath COMPARISON: 08/23/2016 FINDINGS: LUNGS: No active pulmonary disease. PLEURA: No significant pleural effusion identified, no pneumothorax apparent. CARDIOVASCULAR: No radiographic findings to suggest acute or significant cardiovascular disease. OSSEOUS STRUCTURES: No significant abnormalities. VISUALIZED UPPER ABDOMEN: Normal. OTHER FINDINGS: None. IMPRESSION: No active disease. No significant interval change compared to the prior examination(s).
[2017-09-15 15:27] LABS: URINE BILIRUBIN NEGATIVE (NEGATIVE); URINE BLOOD NEGATIVE (NEGATIVE); URINE GLUCOSE (UA) NEGATIVE (NEGATIVE); URINE LEUKOCYTE ESTERASE NEGATIVE Leu/uL (NEGATIVE); URINE PROTEIN NEGATIVE mg/dL (<30 mg/dL); URINE UROBILINOGEN 0.2 E.U./dL (<1 E.U./dL)
[2017-09-15 15:30] LABS: URINE APPEARANCE CLEAR (CLEAR); URINE COLOR YELLOW (YELLOW)
[2017-09-15 17:09] VITALS: BP 118/71; PULSE 75
--- NOTE | 2017-09-16 19:44 | CARD ---
APPROVED REPORT EKG Measurement Heart [id number] <Conclusion> Normal sinus rhythm Normal ECG
== END 2017-09-15 17:38 | disposition home or self-care (01) ==
LOC: ED 12:46
DX: J44.1 Chronic obstructive pulmonary disease with (acute) exacerbation (principal); J06.9 Acute upper respiratory infection, unspecified; F17.210 Nicotine dependence, cigarettes, uncomplicated
CPT/HCPCS: 71045; 80053; 81003; 82550; 83615; 83735; 83880; 84484; 85025; 85610; 85730; 93005; 96374; 99284; J2930